=== PATIENT | male | born 1965 | race Caucasian/White ===

== ENCOUNTER 2016-11-03 09:38 | Emergency (ER) | payer OTHER ==
[~2016-11-03] VITALS: Ht 185.4 cm; Wt 115.0 kg
[2016-11-03 09:46] VITALS: BP 129/81; PULSE 65; RESP 22; TEMP 97.8; O2SAT 96
[2016-11-03] MEDS ORDERED: ACETAMINOPHEN/CODEINE 300 MG/30 MG TAB PO ONE (10:45)
[2016-11-03] MEDS ORDERED: ONDANSETRON ODT 4 MG TAB PO ONE (10:45)
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
[2016-11-03] MEDS ORDERED: NAPR500 PO (14:27)
[2016-11-03] MEDS ORDERED: ROBA500T PO (14:28)
[2016-11-03 14:35] VITALS: BP 128/79
[2016-11-03] MEDS ORDERED: BACI500O9 TOPICAL (14:36)
== END 2016-11-03 14:36 | disposition home or self-care (01) ==
LOC: NEPC 09:38
DX: S43.402A Unspecified sprain of left shoulder joint, initial encounter (principal); M54.2 Cervicalgia; R55 Syncope and collapse; R11.0 Nausea; Z79.899 Other long term (current) drug therapy; V43.52XA Car driver injured in collision with other type car in traffic accident, initial encounter
CPT/HCPCS: 70450; 71020; 72050; 73030; 99285